=== PATIENT | male | born 1995 | race African-American/Black ===

== ENCOUNTER 2017-06-02 07:36 | Inpatient (IN) | payer OTHER ==
[~2017-06-02] VITALS: Ht 154.9 cm; Wt 80.0 kg
[2017-06-02] MEDS ORDERED: ONDANSETRON 2MG/ML, 2ML IVPush ONE (08:00)
[2017-06-02] MEDS ORDERED: SODIUM CHLORIDE 0.9% 1,000ML IVBOLUS ONE (08:00)
[2017-06-02] MEDS ORDERED: FAMOTIDINE 20 MG/2 ML IVP ONE (08:00)
[2017-06-02] MEDS ORDERED: MORPHINE SULFATE 4 MG/ML, 1ML ONE ×2 (08:13→09:19)
[2017-06-02] MEDS ORDERED: ONDANSETRON 2MG/ML, 2ML ONE (08:14)
[2017-06-02] MEDS ORDERED: FAMOTIDINE 20 MG/2 ML ONE (08:14)
[2017-06-02 08:16] LABS: HEMATOCRIT 49.3 % (39.2-51.8); HEMOGLOBIN 16.6 g/dL (13.7-18.0); WHITE BLOOD COUNT 7.7 x10^3/uL (3.4-10)
[2017-06-02] MEDS: MORPHINE SULFATE 4 MG/ML, 1ML IVPush PRN ×2 (08:20→09:21)
[2017-06-02 08:31] LABS: ASPARTATE AMINO TRANSFERASE 59 U/L (15-37); BLOOD UREA NITROGEN 19 mg/dL (7-18)
[2017-06-02] MEDS ORDERED: OMNIPAQUE 350 MG/ML, 100ML BOTTLE ONE (10:27)
[2017-06-02] MEDS ORDERED: CEFOTETAN PMX 1GM/50ML 50 ML IV ONE (11:30)
[2017-06-02 12:34] VITALS: BP 134/66
[2017-06-02] MEDS ORDERED: BUPIVACAINE/PF 0.5% ONE (13:04)
[2017-06-02] MEDS ORDERED: EPINEPHRINE 1 MG/ML, 1ML ONE (13:04)
[2017-06-02] MEDS ORDERED: MIDAZOLAM 1 MG/ML, 2ML ONE (13:56)
[2017-06-02] MEDS ORDERED: FENTANYL PF 100 MCG/2ML ONE ×2 (13:56)
[2017-06-02] MEDS ORDERED: PROPOFOL 10 MG/ML, 20ML ONE (14:10)
[2017-06-02] MEDS ORDERED: ROCURONIUM 10 MG/ML ONE (14:10)
[2017-06-02] MEDS ORDERED: GLYCOPYRROLATE 0.2MG/1ML ONE (14:10)
[2017-06-02] MEDS ORDERED: NEOSTIGMINE 1 MG/ML, 10ML ONE (14:10)
[2017-06-02] MEDS ORDERED: SUCCINYLCHOLINE 20 MG/ML, 10ML ONE (14:10)
[2017-06-02] MEDS ORDERED: ONDANSETRON 2MG/ML, 2ML IVPush PRN (14:30)
[2017-06-02] MEDS ORDERED: PROMETHAZINE 25 MG/ML, 1ML IV PRN (14:30)
[2017-06-02] MEDS ORDERED: HYDROmorphone 1 MG/ML, 1ML IV PRN (14:30)
[2017-06-02] MEDS ORDERED: OXYcodone 5 MG/5 ML ORAL.SOL UDC PO PRN (14:30)
[2017-06-02] MEDS ORDERED: ACETAMINOPHEN 325 MG TABLET PO PRN (14:30)
[2017-06-02] MEDS ORDERED: FENTANYL PF 100 MCG/2ML IV PRN (14:30)
[2017-06-02] MEDS ORDERED: BUPIVACAINE/PF-EPI 0.5% 1:200K INFIL ONE (14:40)
[2017-06-02] MEDS ORDERED: MEPERIDINE/PF 25MG/0.5ML ONE (15:11)
[2017-06-02] MEDS ORDERED: OXYcodone 5 MG/5 ML ORAL.SOL UDC ONE (15:33)
[2017-06-02 16:16] VITALS: BP 104/54
[2017-06-02] MEDS: METRONIDAZOLE PMX 500MG/100ML 100 ML IVPB SCH (16:48)
[2017-06-02] MEDS: SODIUM CHLORIDE 0.9% 1,000 ML IV SCH (16:48)
[2017-06-02] MEDS ORDERED: HYDR-3240 PO (17:30)
[2017-06-02] MEDS ORDERED: CIPR500T87 PO (17:31)
[2017-06-02] MEDS ORDERED: METR500T PO (17:31)
[2017-06-02 19:21] VITALS: BP 114/76
[2017-06-03 00:17] VITALS: BP 113/66
[2017-06-03] MEDS: METRONIDAZOLE PMX 500MG/100ML 100 ML IVPB SCH (00:32)
[2017-06-03] MEDS: CEFOTETAN PMX 2GM/50ML 50 ML IVPB SCH ×2 (02:18→14:20)
[2017-06-03 04:16] VITALS: BP 116/70
[2017-06-03] MEDS: OXYcodone 5 MG/5 ML ORAL.SOL UDC PO PRN ×5 (04:42→21:32)
[2017-06-03 05:30] LABS: HEMATOCRIT 43.2 % (39.2-51.8); HEMOGLOBIN 14.5 g/dL (13.7-18.0); WHITE BLOOD COUNT 10.2 x10^3/uL (3.4-10)
[2017-06-03 05:37] LABS: BLOOD UREA NITROGEN 13 mg/dL (7-18)
[2017-06-03] MEDS: ENOXAPARIN 30 MG/0.3 ML SQ SCH ×2 (07:41→20:44)
[2017-06-03] MEDS: SODIUM CHLORIDE 0.9% 1,000 ML IV SCH ×3 (07:41→22:54)
[2017-06-03 08:44] VITALS: BP 119/72
[2017-06-03] MEDS: METRONIDAZOLE PMX 500MG/100ML 100 ML IV SCH ×2 (10:17→17:36)
[2017-06-03 13:30] VITALS: BP 114/71
[2017-06-03 21:00] VITALS: BP 128/66
[2017-06-04 01:34] VITALS: BP 122/75
[2017-06-04] MEDS: METRONIDAZOLE PMX 500MG/100ML 100 ML IV SCH ×3 (01:38→17:26)
[2017-06-04] MEDS: ONDANSETRON 2MG/ML, 2ML IVPush PRN ×4 (02:29→21:10)
[2017-06-04] MEDS ORDERED: ENOXAPARIN 40 MG/0.4 ML SQ SCH ×2 (02:30→21:00)
[2017-06-04] MEDS ORDERED: ACETAMINOPHEN 325 MG TABLET PO PRN ×2 (02:30)
[2017-06-04] MEDS: CEFOTETAN PMX 2GM/50ML 50 ML IV SCH ×2 (03:20→15:05)
[2017-06-04] MEDS: OXYcodone 5 MG/5 ML ORAL.SOL UDC PO PRN (03:30)
[2017-06-04 08:42] VITALS: BP 125/92
[2017-06-04] MEDS: ENOXAPARIN 30 MG/0.3 ML SQ SCH ×2 (09:41→21:10)
[2017-06-04] MEDS: morphine SULFATE 10 MG/ML, 1ML IV PRN ×2 (09:53→17:41)
[2017-06-04 13:18] VITALS: BP 110/71
[2017-06-04] MEDS: SODIUM CHLORIDE 0.9% 1,000 ML IV SCH (17:26)
[2017-06-04 18:34] VITALS: BP 122/87
[2017-06-05] MEDS: METRONIDAZOLE PMX 500MG/100ML 100 ML IV SCH ×3 (01:30→17:05)
[2017-06-05] MEDS: CEFOTETAN PMX 2GM/50ML 50 ML IV SCH ×2 (03:00→15:09)
[2017-06-05 07:18] VITALS: BP 112/72
[2017-06-05] MEDS: ONDANSETRON 2MG/ML, 2ML IVPush PRN ×2 (09:35→20:35)
[2017-06-05] MEDS: OXYcodone 5 MG/5 ML ORAL.SOL UDC PO PRN (09:36)
[2017-06-05] MEDS: SODIUM CHLORIDE 0.9% 1,000 ML IV SCH (09:44)
[2017-06-05] MEDS: ENOXAPARIN 30 MG/0.3 ML SQ SCH ×2 (09:49→21:00)
[2017-06-05] MEDS: morphine SULFATE 10 MG/ML, 1ML IV PRN ×4 (12:09→22:21)
[2017-06-05] MEDS: PROMETHAZINE 25 MG/ML, 1ML IM PRN (13:33)
[2017-06-05 15:09] VITALS: BP 115/78
[2017-06-05] MEDS ORDERED: SODIUM CHLORIDE 0.9% 1,000ML IVBOLUS ONE (17:30)
[2017-06-05] MEDS: D5%-0.9% NACL+KCL 20MEQ 1,000 ML IV SCH (20:06)
[2017-06-05 20:29] VITALS: BP 118/83
[2017-06-06] MEDS: METRONIDAZOLE PMX 500MG/100ML 100 ML IV SCH ×3 (01:27→17:24)
[2017-06-06] MEDS: CEFOTETAN PMX 2GM/50ML 50 ML IV SCH ×2 (03:05→15:32)
[2017-06-06 03:07] VITALS: BP 111/72
[2017-06-06] MEDS: ONDANSETRON 2MG/ML, 2ML IVPush PRN ×2 (04:36→16:12)
[2017-06-06] MEDS: morphine SULFATE 10 MG/ML, 1ML IV PRN ×4 (04:36→22:34)
[2017-06-06 04:39] LABS: HEMATOCRIT 40.9 % (39.2-51.8); HEMOGLOBIN 13.4 g/dL (13.7-18.0); WHITE BLOOD COUNT 13.7 x10^3/uL (3.4-10)
[2017-06-06 04:53] LABS: BLOOD UREA NITROGEN 14 mg/dL (7-18)
[2017-06-06] MEDS: D5%-0.9% NACL+KCL 20MEQ 1,000 ML IV SCH ×3 (06:05→15:33)
[2017-06-06 08:19] VITALS: BP 118/78
[2017-06-06] MEDS: ENOXAPARIN 30 MG/0.3 ML SQ SCH ×2 (08:29→21:07)
[2017-06-06 15:23] VITALS: BP 129/84
[2017-06-06 19:26] VITALS: BP 118/79
[2017-06-07] MEDS: D5%-0.9% NACL+KCL 20MEQ 1,000 ML IV SCH ×4 (01:11→23:30)
[2017-06-07] MEDS: METRONIDAZOLE PMX 500MG/100ML 100 ML IV SCH ×3 (01:15→17:14)
[2017-06-07 01:36] VITALS: BP 113/76
[2017-06-07] MEDS: ONDANSETRON 2MG/ML, 2ML IVPush PRN ×3 (02:19→20:31)
[2017-06-07] MEDS: CEFOTETAN PMX 2GM/50ML 50 ML IV SCH ×2 (03:26→15:23)
[2017-06-07] MEDS: morphine SULFATE 10 MG/ML, 1ML IV PRN (04:37)
[2017-06-07 09:26] VITALS: BP 117/78
[2017-06-07] MEDS: ENOXAPARIN 30 MG/0.3 ML SQ SCH ×2 (09:37→20:32)
[2017-06-07] MEDS: OXYcodone 5 MG/5 ML ORAL.SOL UDC PO PRN (12:45)
[2017-06-07 13:24] VITALS: BP 122/69
[2017-06-07] MEDS: PROMETHAZINE 25 MG/ML, 1ML IM PRN (15:26)
[2017-06-07] MEDS ORDERED: BISACODYL 10 MG SUPP PR ONE (15:30)
[2017-06-07 19:16] VITALS: BP 114/74
[2017-06-08 00:40] VITALS: BP 124/76
[2017-06-08] MEDS: METRONIDAZOLE PMX 500MG/100ML 100 ML IV SCH (01:57)
[2017-06-08] MEDS: PROMETHAZINE 25 MG/ML, 1ML IM PRN (01:57)
[2017-06-08] MEDS: CEFOTETAN PMX 2GM/50ML 50 ML IV SCH (03:23)
[2017-06-08] MEDS: D5%-0.9% NACL+KCL 20MEQ 1,000 ML IV SCH (06:24)
[2017-06-08 08:21] VITALS: BP 128/82
[2017-06-08] MEDS: ENOXAPARIN 30 MG/0.3 ML SQ SCH (08:25)
[2017-06-08 10:00] VITALS: BP 125/80
== END 2017-06-08 10:15 | disposition home or self-care (01) | DRG 339 ==
LOC: ED 09:01 → EDIP 11:31 → 4NOR 12:35
PROVIDERS: ADMIT Surgery Vascular Surgery; ATTEND Surgery Vascular Surgery
PROC: 0DTJ4ZZ Resection of Appendix, Percutaneous Endoscopic Approach (ICD-10-PCS; principal; 2017-06-02 13:30)
DX: K35.3 Acute appendicitis with localized peritonitis (principal); K56.7 Ileus, unspecified
CPT/HCPCS: 36415; 74022; 74177; 80048; 80053; 81001; 82040; 82962; 83605; 83690; 84145; 85025; 87040; 88304; 89055; 96361; 96374; 96375; 96376; C1729; J0171; J1650; J2250; J2405; J2550; J2704; J2710; J3010; J3490; Q9967; J0330; J2270; J3480; J7030; S0028; S0074